=== PATIENT | male | born 1985 | race Caucasian/White ===

== ENCOUNTER 2020-08-07 14:43 | Emergency (ER) | payer MEDICARE, OTHER, MEDICAID ==
[~2020-08-07] VITALS: Ht 180.3 cm; Wt 122.5 kg
[2020-08-07] MEDS ORDERED: VENTOLIN HFA 1818 GM INH (16:03)
[2020-08-07] MEDS ORDERED: TESSALON PERLE100 M1 PO (16:03)
[2020-08-07 16:18] VITALS: BP 148/68
== END 2020-08-07 16:19 | disposition home or self-care (01) ==
LOC: M.ERS 14:43
DX: B34.9 Viral infection, unspecified (principal); F17.210 Nicotine dependence, cigarettes, uncomplicated; Z88.2 Allergy status to sulfonamides